=== PATIENT | female | born 1980 | race Caucasian/White ===

== ENCOUNTER 2021-01-13 23:18 | Inpatient (IN) ==
[2021-01-14] LABS: Bacteria,Urine Few per hpf (None-Few); Bilirubin,Urine Negative (Negative); Blood,Urine Small (Negative); Clarity,Urine Clear (Clear); Color,Urine Light-Yellow (Yellow); Glucose,Urine (UA) Normal (Normal); Ketones,Urine Negative (Negative); Leukocyte Esterase,Urine Negative (Negative); Mucus,Urine Few per lpf (None-Few); Nitrite,Urine Negative (Negative); Protein,Urine Negative (Neg-Trace); RBC,Urine 0-3 per hpf (0-3); Specific Gravity,Urine 1.014 (1.010-1.025); Squamous Epithelial Cell,Urine Moderate per hpf (None-Few); Urobilinogen,Urine Normal (Normal); WBC,Urine 0-3 per hpf (0-3)
[2021-01-14 00:02] LABS: Basophils # 0.1 K/mcL (0.0-0.2); Basophils % 0.5 %; Eosinophils # 0.1 K/mcL (0.0-0.6); Eosinophils % 0.7 %; Hematocrit 42.1 % (35.3-44.9); Hemoglobin 14.2 g/dL (11.5-15.4); Lymphocytes # 3.8 K/mcL (0.6-4.6); Lymphocytes % 30.2 %; Mean Corpuscular HGB Conc 33.7 g/dL (31.6-35.5); Mean Corpuscular Hemoglobin 32.9 pg (28.0-33.3); Mean Corpuscular Volume 97.7 fL (83.0-100.0); Mean Platelet Volume 9.1 fL (9.4-12.4); Monocytes # 0.8 K/mcL (0.0-1.3); Monocytes % 6.1 %; Neutrophils # 7.7 K/mcL (1.6-8.9); Platelet Count 357 K/mcL (140-400); Red Blood Count 4.31 M/mcL (3.82-4.97); Red Cell Distribution Width 13.3 % (11.5-14.5); Segmented Neutrophils % 61.5 %; White Blood Count 12.5 K/mcL (4.3-11.1)
[2021-01-14 00:07] LABS: Estimated Average Glucose 111 mg/dl; Hemoglobin A1C 5.5 %
[2021-01-14 00:17] LABS: Acetaminophen < 10 mcg/mL (10-20); Alanine Aminotransferase 16 Units/L (7-52); Albumin 4.4 g/dL (3.5-5.7); Albumin/Globulin Ratio 1.6 (1.1-2.2); Alkaline Phosphatase 79 Units/L (34-104); Aspartate Amino Transferase 17 Units/L (13-39); BUN/Creatinine Ratio 15 (6-26); Bilirubin,Direct 0.1 mg/dL (0.0-0.2); Bilirubin,Indirect 0.3 mg/dL (0.0-1.0); Bilirubin,Total 0.4 mg/dL (0.3-1.0); Blood Urea Nitrogen 12 mg/dL (6-20); Calcium 8.8 mg/dL (8.6-10.3); Carbon Dioxide 21 mEq/L (23-29); Chloride 108 mEq/L (98-107); Chol/HDL Ratio 3.9 (0-4.9); Cholesterol 180 mg/dL (< 200); Ethanol 107 mg/dL (Less than 10); Globulin 2.8 g/dL (2.4-3.5); Glucose 96 mg/dL (70-105); HDL Cholesterol 46 mg/dL (40-59); LDL Cholesterol,Calculated 61 mg/dL (< 100); Osmolality,Calculated 290 (280-300); Potassium 3.5 mEq/L (3.5-5.1); Salicylate < 2.5 mg/dL (15.0-30.0); Sodium 140 mEq/L (136-145); Total Protein 7.2 g/dL (6.4-8.9); Triglycerides 367 mg/dL (< 150); eGFR For African Americans > 60 (> 60); eGFR For Non-African Americans > 60 (> 60)
[2021-01-14 00:30] LABS: Thyroid Stimulating Hormone 2.443 mcIU/mL (0.340-5.600)
[2021-01-14 00:33] LABS: Amphetamine Screen,Urine Negative ng/mL (Cutoff=1000); Barbiturate Screen,Urine Negative ng/mL (Cutoff=200); Benzodiazepines Screen,Urine Negative ng/mL (Cutoff=200); Cannabinoid Screen,Urine Positive ng/mL (Cutoff = 50); Cocaine Screen,Urine Negative ng/mL (Cutoff= 300); Opiate Screen,Urine Negative ng/mL (Cutoff=300); Phencyclidine Screen,Urine Negative ng/mL (Cutoff=25)
[2021-01-14] MEDS ORDERED: Nicotine 14 MG PATCH.TD24 TD SCH (01:30)
[2021-01-14] MEDS ORDERED: clonazePAM 0.5 MG TABLET PO ONE (04:04)
[2021-01-14 04:51] LABS: Influenza A PCR Negative (Negative); Influenza B PCR Negative (Negative); Resp. Syncytial Virus PCR Negative (Negative)
[2021-01-14 04:53] LABS: SARS-CoV-2 by PCR (In House) Negative (Negative)
[2021-01-14] MEDS ORDERED: Haloperidol Lactate 5 MG/ML VIAL IM PRN (05:12)
[2021-01-14] MEDS ORDERED: *HR* LORazepam 2 MG/ML VIAL IM PRN (05:12)
[2021-01-14] MEDS ORDERED: haloperidoL 5 MG TABLET PO PRN (05:12)
[2021-01-14] MEDS ORDERED: *HR* LORazepam 1 MG TABLET PO PRN (05:12)
[2021-01-14] MEDS ORDERED: hydrOXYzine pamoate 25 MG CAPSULE PO PRN (05:12)
[2021-01-14] MEDS ORDERED: traZODone 50 MG TABLET PO PRN (05:12)
[2021-01-14] MEDS ORDERED: clonazePAM 1 MG TABLET PO PRN (05:16)
[2021-01-14] MEDS ORDERED: Desvenlafaxine Succinate [Pristiq] 50 MG Tab.Er.24h PO SCH (09:00)
[2021-01-14] MEDS: lamoTRIgine 100 MG TABLET PO SCH (09:02)
[2021-01-14] MEDS ORDERED: MOM Conc 10 ML UD.LIQ PO PRN (12:41)
[2021-01-14] MEDS ORDERED: Mag Hydrox/Al Hydrox/Simeth 30 ML UDC PO PRN (12:41)
[2021-01-14] MEDS: DESVENLAFAXINE SUCCINATE 50 MG PO SCH (14:13)
[2021-01-14] MEDS: Nicotine 21 MG PATCH.TD24 TD SCH (14:14)
[2021-01-14] MEDS: diazePAM 5 MG TABLET PO PRN (16:08)
[2021-01-14] MEDS ORDERED: traZODone 50 MG TABLET PO SCH ×2 (18:00→21:00)
[2021-01-14] MEDS ORDERED: QUEtiapine Fumarate 100 MG TABLET PO SCH (21:00)
[2021-01-15] MEDS: Nicotine 21 MG PATCH.TD24 TD SCH (09:34)
[2021-01-15] MEDS: lamoTRIgine 100 MG TABLET PO SCH (09:35)
[2021-01-15] MEDS: DESVENLAFAXINE SUCCINATE 50 MG PO SCH (09:36)
[2021-01-15 09:39] VITALS: BP 127/82; PULSE 113; TEMP 98.5; O2SAT 98
[2021-01-15] MEDS: diazePAM 5 MG TABLET PO PRN (09:40)
== END 2021-01-15 11:25 | disposition home or self-care (01) | DRG 756 ==
LOC: EMEROOARM 23:18 → 1ANU 01-14 05:17
PROVIDERS: ADMIT Psychiatry & Neurology Psychiatry; ATTEND Psychiatry & Neurology Psychiatry